=== PATIENT | female | born 1950 | race Caucasian/White ===

== ENCOUNTER → 2020-10-20 | Outpatient (CLI) | payer MEDICARE ==
[~2020-10-20] MED LIST: HYDCHL25 PO; METO100ER PO; SYNTHROID112 MCG PO
[2020-10-20 14:54] LABS: Calcium, Urine <5.0 mg/dL (< 17.5); Calcium, Urine Calculation Unable to Calculate mg/24hrs (42.0-353.0)
== END | disposition home or self-care (01) ==
LOC: LAB SHORT 09:00 → LAB 09:00
PROVIDERS: Internal Medicine
DX: E83.52 Hypercalcemia (principal)
CPT/HCPCS: 81050; 82340; 84156; 84300

== ENCOUNTER → 2021-03-31 | Outpatient (CLI) | payer MEDICARE ==
[2021-03-31 13:25] LABS: BASOPHILS ABSOLUTE AUTO 0.03 K/mm3 (0.00-0.23); BASOPHILS PERCENT AUTO 1 % (0-2); EOSINOPHILS ABSOLUTE AUTO 0.03 K/mm3 (0.00-0.68); EOSINOPHILS PERCENT AUTO 1 % (0-6); Hematocrit 44.1 % (33.0-51.0); Hemoglobin 14.2 g/dL (11.5-16.0); IMMATURE GRAN ABSOLUTE AUTO 0.02 K/mm3 (0.00-0.10); IMMATURE GRAN PERCENT AUTO 0 % (0-1); LYMPHOCYTES PERCENT AUTO 31 % (21-46); MONOCYTES ABSOLUTE AUTO 0.38 K/mm3 (0.16-1.47); MONOCYTES PERCENT AUTO 6 % (4-13); Mean Corpuscular HGB 29.3 pg (26.0-34.0); Mean Corpuscular HGB Conc 32.2 g/dL (31.5-36.5); Mean Corpuscular Volume 91 fL (80-100); Mean Platelet Volume 11.2 fL (9.1-12.4); NEUTROPHILS ABSOLUTE AUTO 4.08 K/mm3 (1.96-9.15); NEUTROPHILS PERCENT AUTO 62 % (41-73); Platelet Count 235 K/mm3 (150-400); RDW Coefficient Variation 13.8 % (11.7-14.2); RDW Standard Deviation 46.4 fL (35.1-46.3); Red Blood Cell Count 4.85 M/mm3 (3.80-5.20); White Blood Cell Count 6.54 K/mm3 (4.00-11.30)
[2021-03-31 14:27] LABS: Albumin, Blood 3.7 g/dL (3.4-5.0); Anion Gap 2 mmol/L (6-16); Blood Urea Nitrogen 21 mg/dL (8-24); Bun/Creatinine Ratio 18.3 (12.0-20.0); CO2, Blood 29 mmol/L (21-32); Calcium, Blood 11.4 mg/dL (8.5-10.1); Chloride, Blood 107 mmol/L (98-108); Creatinine, Blood 1.15 mg/dL (0.40-1.00); Glomerular Filtration Rate 50 (60-); Glucose, Blood 117 mg/dL (70-99); Phosphorus, Blood 2.6 mg/dL (2.5-4.9); Potassium, Blood 4.2 mmol/L (3.5-5.5); Sodium, Blood 138 mmol/L (136-145)
== END | disposition home or self-care (01) ==
LOC: LAB 12:25 → OLS 12:25 → RAD SHORT 12:25
PROVIDERS: Internal Medicine
DX: E83.52 Hypercalcemia (principal); N18.31 Chronic kidney disease, stage 3a
CPT/HCPCS: 36415; 80069; 82306; 82652; 83970; 85025

== ENCOUNTER → 2022-01-20 | Outpatient (CLI) | payer MEDICARE | END | disposition home or self-care (01) | LOC: LAB SHORT 12:00 | DX: E11.65 Type 2 diabetes mellitus with hyperglycemia (principal); E03.9 Hypothyroidism, unspecified; N28.9 Disorder of kidney and ureter, unspecified | CPT/HCPCS: 82043 ==

== ENCOUNTER → 2024-06-07 | Outpatient (CLI) | payer MEDICARE ==
[2024-06-07 15:56] LABS: Microalb/Creat Ratio UR, Rand 313.204 mg/g (0.000-30.000)
[2024-06-07 15:57] LABS: Creatinine, Urine Random 97.7 mg/dL (27.00-270.00)
== END ==
LOC: LAB 10:35 → LAB SHORT 10:35 → LAB FUT 06-06 13:30
PROVIDERS: Hospitalist
DX: N18.31 Chronic kidney disease, stage 3a (principal)
CPT/HCPCS: 82043; 82570

== ENCOUNTER → 2025-05-08 | Outpatient (CLI) | payer MEDICARE ==
[2025-05-08 14:55] LABS: Source, Urine Clean Catch
[2025-05-08 17:26] LABS: Bilirubin, Urine Neg (Neg); Color, Urine Yellow (P-Yellow); Glucose Qualitative, Urine Neg (Neg); Ketones, Urine Neg (Neg); Leukocyte Esterase, Urine 1+ (Neg); Protein, Urine 2+ (Neg); Specific Gravity, Urine 1.020 (1.003-1.022); Urobilinogen, Urine NORM (Normal)
== END | disposition home or self-care (01) ==
LOC: LAB 14:53 → LAB SHORT 14:53 → LAB FUT 12-27 15:00
PROVIDERS: Hospitalist
DX: N18.31 Chronic kidney disease, stage 3a (principal); E21.3 Hyperparathyroidism, unspecified; R31.29 Other microscopic hematuria
CPT/HCPCS: 81001; 87077; 87086; 87186

== ENCOUNTER 2025-09-19 02:53 | Inpatient (IN) | payer MEDICARE ==
[~2025-09-19] VITALS: Ht 162.6 cm; Wt 110.8 kg
[~2025-09-19 02:53] MED LIST changes: +AMLO10 PO; +ASPI81CH PO; +ATOR80 PO; +BENADRYL25 MG PO; +CEPH500 PO; +CLOP75 PO; +ERGO400 PO; +EUTHYROX125 MCG PO; +IBU800 M1 PO; +JARDIANCE10 MG PO; +LORA2 PO; +LOSA50 PO; +MAGNESIUM OXID400 M1 PO; +METFORMIN HCL500 M3 PO; +Norco 5-325 Ta1 EACH PO; +PAROEX473 ML MM; -SYNTHROID112 MCG PO; +VITAMIN B-122000 MC1 PO
[2025-09-19 03:44] LABS: BASOPHILS ABSOLUTE AUTO 0.09 K/mm3 (0.00-0.23); BASOPHILS PERCENT AUTO 1 % (0-2); EOSINOPHILS ABSOLUTE AUTO 0.21 K/mm3 (0.00-0.68); EOSINOPHILS PERCENT AUTO 2 % (0-6); Hematocrit 41.6 % (33.0-51.0); Hemoglobin 13.7 g/dL (11.5-16.0); IMMATURE GRAN ABSOLUTE AUTO 0.05 K/mm3 (0.00-0.10); IMMATURE GRAN PERCENT AUTO 1 % (0-1); LYMPHOCYTES ABSOLUTE AUTO 2.37 K/mm3 (0.84-5.20); LYMPHOCYTES PERCENT AUTO 22 % (21-46); MONOCYTES ABSOLUTE AUTO 0.61 K/mm3 (0.16-1.47); MONOCYTES PERCENT AUTO 6 % (4-13); Mean Corpuscular HGB Conc 32.9 g/dL (31.5-36.5); Mean Corpuscular Volume 89 fL (80-100); NEUTROPHILS ABSOLUTE AUTO 7.69 K/mm3 (1.96-9.15); NEUTROPHILS PERCENT AUTO 70 % (41-73); NRBC ABSOLUTE 0.00 K/mm3 (0.00-0.02); NRBC Auto 0.0 /100 WBC (0.0-0.2); RDW Coefficient Variation 13.6 % (11.7-14.2); RDW Standard Deviation 43.9 fL (35.1-46.3)
[2025-09-19 04:04] LABS: Platelet Count 34 K/mm3 (150-400)
[2025-09-19 04:17] LABS: Alanine Aminotransfer (ALT/SGP 25.0 U/L (12-78); Albumin, Blood 3.5 g/dL (3.4-5.0); Albumin/Globulin Ratio 1.0 (0.8-1.8); Anion Gap 12.0 mmol/L (3-11); Aspartate Aminotrans (AST/SGOT 24.0 U/L (12-37); Bilirubin, Total 0.9 mg/dL (0.1-1.0); Blood Urea Nitrogen 45.0 mg/dL (8-24); CO2, Blood 21.0 mmol/L (21-32); Calcium, Blood 11.3 mg/dL (8.5-10.1); Chloride, Blood 103.0 mmol/L (98-108); Creatinine, Blood 1.86 mg/dL (0.40-1.00); Globulin, Blood 3.6 g/dL (2.2-4.0); Glucose, Blood 243.0 mg/dL (70-99); Magnesium, Blood 1.9 mg/dL (1.6-2.4); Potassium, Blood 3.4 mmol/L (3.5-5.5); Sodium, Blood 133.0 mmol/L (136-145); Total Protein, Blood 7.1 g/dL (6.4-8.2)
[2025-09-19 04:24] LABS: Source, Urine Clean Catch
[2025-09-19 04:32] LABS: Bilirubin, Urine Neg (Neg); Color, Urine Yellow (P-Yellow); Glucose Qualitative, Urine 4+ (Neg); Ketones, Urine Neg (Neg); Leukocyte Esterase, Urine 1+ (Neg); Protein, Urine 2+ (Neg); Specific Gravity, Urine 1.020 (1.003-1.022); Urobilinogen, Urine NORM (Normal)
[2025-09-19 04:37] LABS: Prothrombin Time Results 11.6 Sec (9.7-11.5)
[2025-09-19 04:40] LABS: Red Blood Cells, Urine 0-2 /hpf (0-2)
[2025-09-19] MEDS ORDERED: CefTRIAXone Sodium 1,000 MG in NS 100 ML IV ONE (04:45)
[2025-09-19] MEDS ORDERED: Ondansetron HCl 2 MG / ML 2ML Vial IV PRN (05:40)
[2025-09-19] MEDS ORDERED: FLU VACC TS2025(65UP)/MF59C/PF 45 MCG/0.5 ML SYRINGE IM SCH (06:00)
[2025-09-19 06:07] LABS: Thyroid Stimulating Hormone 6.12 uIU/mL (0.360-4.800)
[2025-09-19] MEDS ORDERED: Enoxaparin 40 MG/0.4 ML SYR SC SCH (09:00)
[2025-09-19] MEDS ORDERED: Lactobacil 2-S.Thermo-Bifido 1 1 Cap PO SCH (09:00)
[2025-09-19 12:31] VITALS: BP 126/80
[2025-09-19 16:47] VITALS: BP 133/79
[2025-09-19 19:55] VITALS: BP 128/79
[2025-09-20 00:01] VITALS: BP 129/89
[2025-09-20 04:12] VITALS: BP 125/76
[2025-09-20 05:17] LABS: Hematocrit 42.1 % (33.0-51.0); Hemoglobin 13.8 g/dL (11.5-16.0); Mean Corpuscular HGB Conc 32.8 g/dL (31.5-36.5); Mean Corpuscular Volume 88 fL (80-100); NRBC ABSOLUTE 0.00 K/mm3 (0.00-0.02); NRBC Auto 0.0 /100 WBC (0.0-0.2); RDW Coefficient Variation 13.6 % (11.7-14.2); RDW Standard Deviation 44.2 fL (35.1-46.3)
[2025-09-20 05:29] LABS: Platelet Count 20 K/mm3 (150-400)
[2025-09-20 05:42] LABS: Albumin, Blood 3.4 g/dL (3.4-5.0); Anion Gap 8 mmol/L (3-11); Blood Urea Nitrogen 31 mg/dL (8-24); CO2, Blood 26 mmol/L (21-32); Calcium, Blood 11.3 mg/dL (8.5-10.1); Chloride, Blood 106 mmol/L (98-108); Creatinine, Blood 1.47 mg/dL (0.40-1.00); Glucose, Blood 130 mg/dL (70-99); Magnesium, Blood 2.2 mg/dL (1.6-2.4); Phosphorus, Blood 2.7 mg/dL (2.5-4.9); Potassium, Blood 3.9 mmol/L (3.5-5.5); Sodium, Blood 136 mmol/L (136-145)
--- NOTE | 2025-09-20 06:04 | NUR ---
SHIFT SUMMARY PT WITH UNEVENTFUL SHIFT. PUREWICK DRAINING YELLOW URINE. PT ABLE TO REPOSITION SELF IN BED, HAS NOT GOTTEN OUT OF BED TONIGHT. TELE RUNNING SR. PT SLEPT INTERMITTENTLY DURING THE SHIFT. PLUG AND MOLD FINISHER PROVIDER NOTIFIED OF CRITICAL PLTS= 20, DOWN FROM 34 AT ADMISSION- NO NEW ORDERS.
[2025-09-20 07:19] VITALS: BP 121/81
[2025-09-20] MEDS ORDERED: CefTRIAXone Sodium 1,000 MG in NS 100 ML IV SCH (09:00)
--- NOTE | 2025-09-20 09:00 | NUR ---
"Spiritual Care Visit | Pt. Request Pt. is awake in bed when she welcomes my visit. Pt. is pleasant. Facilitated a life review and listened with empathy and interest. Pt. verbalizes concerns that she will be able to care for herself at discharge. Seek to normalize the Pt. experience. Pt. verbalizes that her daughter lives in [place] but it is difficult for the daughter to be present with the Pt. at home. Considered matters of kenya and belief. Pt. welcomed prayer. Took the Pts hand and prayed with her. Pt. verbalized gratitude for the spiritual care visit."
[2025-09-20 11:45] VITALS: BP 141/89
[2025-09-20 15:35] VITALS: BP 144/90
--- NOTE | 2025-09-20 16:43 | NUR ---
SHIFT SUMMARY PT AOX4, COOPERATIVE, ABLE TO MAKE NEEDS KNOWN. PT IS BEDREST CURRENLTY UNTIL PT CAN ASSESS. ON ROOM AIR, TOELRATING MEDICATION. PURE WICK IN PLACE FOR CONTINENCE ISSUES. DID DC LOVENOX, WILL HAND OFF IN REPORT. NO OTHER COMPLAINTS THIS SHIFT. BED IN LOWEST POSITION, CALL LIGHT WITHIN REACH.
[2025-09-20 19:14] VITALS: BP 135/86
[2025-09-21 00:11] VITALS: BP 134/95
[2025-09-21 04:03] VITALS: BP 133/86
[2025-09-21 05:53] LABS: Hematocrit 41.5 % (33.0-51.0); Hemoglobin 13.8 g/dL (11.5-16.0); Mean Corpuscular HGB Conc 33.3 g/dL (31.5-36.5); Mean Corpuscular Volume 87 fL (80-100); NRBC ABSOLUTE 0.00 K/mm3 (0.00-0.02); NRBC Auto 0.0 /100 WBC (0.0-0.2); RDW Coefficient Variation 13.6 % (11.7-14.2); RDW Standard Deviation 43.5 fL (35.1-46.3)
[2025-09-21 06:04] LABS: Platelet Count 17 K/mm3 (150-400)
[2025-09-21 06:20] LABS: Anion Gap 8.0 mmol/L (3-11); Blood Urea Nitrogen 26.0 mg/dL (8-24); CO2, Blood 27.0 mmol/L (21-32); Calcium, Blood 11.3 mg/dL (8.5-10.1); Chloride, Blood 105.0 mmol/L (98-108); Creatinine, Blood 1.52 mg/dL (0.40-1.00); Glucose, Blood 125.0 mg/dL (70-99); Potassium, Blood 4.0 mmol/L (3.5-5.5); Sodium, Blood 136.0 mmol/L (136-145)
--- NOTE | 2025-09-21 06:42 | NUR ---
SHIFT SUMMARY PT STAYED IN BED DURING THE NIGHT. ABLE TO REPOSITION SELF WITH HELP NEEDED. PUREWICK DRAINING YELLOW URINE. PLATELETS CONTINUE TO TREND DOWN. PLATELETS AT 17 THIS AM. DISCUSSED RESULTS WITH TRUCK HOP, HEMATOLOGY IS FOLLOWING. PT SLEPT INTERMITTENTLY DURING THE NIGHT.
[2025-09-21 08:16] VITALS: BP 150/92
[2025-09-21] MEDS ORDERED: NS 250 ML IV PRN (09:55)
[2025-09-21 11:58] VITALS: BP 152/95
--- NOTE | 2025-09-21 14:17 | NUR ---
NOTE PT HAD VENOUS DUPLEX AND CT PE STUDY COMPLETE TODAY. THIS RN SAW RESULTS, NOTIFIED DR. GAMINO OF BOTH RESULTS. NO NEW INTERVENTIONS AT THIS TIME. DR. COTA ORDERED ELIQUIS THIS AM, WHICH PT GOT DOSE OF, DR. GAMINO REPORTED "PT WILL REMAIN ON ELIQUIS.
[2025-09-21 15:20] VITALS: BP 138/91
--- NOTE | 2025-09-21 18:51 | NUR ---
SHIFT SUMMARY PT A&OX4. PT ADMITTED DUE TO ORTHOSTATIC HYPOTENSION. PT VSS. PT REPORTS NO PAIN/NO DIZZY/NO SOB/NO CHEST PAIN. PT ABLE TO TURN WITH ONE ASSIST. PT TURNED Q2 HOURS. SYNCOPAL EVENT ON 09/19. PT WITH SLOW SPEECH, PT REPORTS NOT SURE IF SHE CAN WALK DUE TO TWISTED ANKLE WHEN SHE FELL. PHYSICAL THERAPY ORDERED. PT HAS PERWICK IN PLACE. PT HAS CONT PULSE OX ON, PT ON ROOM AIR. SPO2 IS 93%. PT VSS. PT ON TELE, NO TELE REPORTS NOTED. PT REPORTS NO BM SINCE TUESDAY, BOWEL MEDS GIVEN. ACHS CHECKS COMPLETED AND D/C DUE TO BEING ON JARDIANCE AND CBG CHECKS BEEN STABLE WHILE PT HAS BEEN ADMITTED. CIPRO AND COZAAR STARTED. ADDITIONAL IV STARTED AT [facility]. PT COMPLETED PE STUDY AND LOWER VENOUS DUPLEX, RESULTS REPORTED TO DR. GAMINO (SEE PREVIOUS NOTE) PT IN BED, BED IN LOWEST POSITION, LOCKED, CALL LIGHT IN REACH
[2025-09-21 19:22] VITALS: BP 166/81
[2025-09-22 00:12] VITALS: BP 140/82
--- NOTE | 2025-09-22 01:05 | NUR ---
PT C/O GENERALIZED ACHES INCLUDING HEAD AND STOMACH- ALSO C/O NAUSEA. PT WITH INCREASED OXYGEN REQUIREMENTS AT START OF SHIFT FOR DESATTING AND SOB WITH ACTIVITY. IMAGING TODAY SHOWED PE'S AND DVT. PT STATED OXYGEN HELPED WITH SOB WHEN FIRST APPLIED, BUT STILL HAS SOB WITH ANY ACITVITY- CONTINUOUS PULSE OX SHOWING SATS 90-94% ON 2L NC. DR. GONZALEZ NOTIFIED OF ABOVE. AWAITING ORDERS FOR ANTINAUSEA MEDICATION, WILL CONTINUE TO MONITOR RESPIRATORY STATUS.
[2025-09-22] MEDS ORDERED: Ondansetron HCl 2 MG / ML 2ML Vial IV PRN (01:10)
[2025-09-22 04:49] VITALS: BP 129/80
[2025-09-22 05:40] LABS: Hematocrit 41.7 % (33.0-51.0); Hemoglobin 13.8 g/dL (11.5-16.0); Mean Corpuscular HGB Conc 33.1 g/dL (31.5-36.5); Mean Corpuscular Volume 89 fL (80-100); NRBC ABSOLUTE 0.00 K/mm3 (0.00-0.02); NRBC Auto 0.0 /100 WBC (0.0-0.2); RDW Coefficient Variation 13.8 % (11.7-14.2); RDW Standard Deviation 44.4 fL (35.1-46.3)
[2025-09-22 05:50] LABS: Platelet Count 20 K/mm3 (150-400)
[2025-09-22 06:07] LABS: Anion Gap 6.0 mmol/L (3-11); Blood Urea Nitrogen 23.0 mg/dL (8-24); CO2, Blood 28.0 mmol/L (21-32); Calcium, Blood 11.3 mg/dL (8.5-10.1); Chloride, Blood 104.0 mmol/L (98-108); Creatinine, Blood 1.59 mg/dL (0.40-1.00); Glucose, Blood 126.0 mg/dL (70-99); Potassium, Blood 4.3 mmol/L (3.5-5.5); Sodium, Blood 134.0 mmol/L (136-145)
--- NOTE | 2025-09-22 06:29 | NUR ---
SHIFT SUMMARY PT REQUIRED OXYGEN 2L PER NC DURING THE NIGHT. C/O SOB WITH ANY ACTIVITY. PT WITH GENERAL BODY ACHES AND NAUEA DURING THE NIGHT, LOOM BLOWER PROVIDER NOTIFIED- SEE PREVIOUS NOTE. PT STATES HER NAUSEA AND ACHES HAVE IMPROVED THIS AM. STILL SOB WHEN HEAD LOWERED AND REPOSITIONED FOR CARE. PUREWICK DRAINING YELLOW URINE. PT SLEPT INTERMITTENTLY DURING THE NIGHT.
[2025-09-22 07:31] VITALS: BP 129/69
[2025-09-22] MEDS ORDERED: Albuterol 2.5 MG/3 ML VIAL INH PRN (10:00)
[2025-09-22] MEDS ORDERED: Albuterol 2.5 MG/3 ML VIAL INH ONE (10:05)
[2025-09-22] MEDS ORDERED: Ipratropium/Albuterol SulF 2.5-0.5MG/3 ML Amp INH PRN (10:25)
[2025-09-22 11:15] VITALS: BP 119/91
[2025-09-22 16:05] VITALS: BP 113/69
--- NOTE | 2025-09-22 19:23 | NUR ---
SHIFT SUMMARY PT A&OX4. PT ADMITTED DUE TO ORTHOSTATIC HYPOTENSION. PT REPORTS NO CHEST PAIN. PT ABLE TO TURN WITH ONE ASSIST. PT REPORTS SOB WITH MOVEMENT. PT TURNED Q2 HOURS. SYNCOPAL EVENT ON 09/19. PT WITH SLOW SPEECH, PT WORKED WITH PHYSICAL THERAPY. PHYSICAL THERAPY REPORTED PT ABLE TO STAND, PT REPORTED DIDN T FEEL LIKE SHE COULD WALK ON L ANKLE. NOT SURE IF XRAY HAS BEEN COMPLETED ON L ANKLE. THIS RN REPORTED TO DR. GAMINO, PHYSICAL THERAPY REPORT. DR. GAMINO ORDERED XRAY ON L ANKLE. ANKLE XRAY COMPLETED OF L ANKLE. RESULTS OF XRAY REPORTED TO DR. GAMINO. PT CONT/INC OF URINE. PT HAS PERWICK IN PLACE. PT HAS CONT PULSE OX ON, PT ON 2L OF O2 VIA N;/C SATS SHOW 95%. DR. GAMINO ROUNDED ON PT THIS AM, THIS RN NOTICED SPO2 ON ROOM AIR WAS 85%, THIS RN REPORTED TO DR. GAMINO PT REMAINS ON 2L. OF O2. PT VSS. PT ON TELE, NO TELE REPORTS NOTED. BOWEL MEDS GIVEN. PT REPORTS NO NAUSEA ON THIS SHIFT. PT IN BED, BED IN LOWEST POSITION, LOCKED, CALL LIGHT IN REACH. INCENTIVE SPIROMETER ORDERED, PT DEMONSTRATED USE, PT EDUCATED TO USE ORDERED. RESPIRATORY TREATMENTS ORDERED.
[2025-09-22 20:38] VITALS: BP 124/82
[2025-09-23] VITALS (7 sets, daily range): BP systolic 107–132; BP diastolic 64–80
[2025-09-23 05:53] LABS: Hematocrit 40.4 % (33.0-51.0); Hemoglobin 13.0 g/dL (11.5-16.0); Mean Corpuscular HGB Conc 32.2 g/dL (31.5-36.5); Mean Corpuscular Volume 91 fL (80-100); NRBC ABSOLUTE 0.00 K/mm3 (0.00-0.02); NRBC Auto 0.0 /100 WBC (0.0-0.2); RDW Coefficient Variation 14.0 % (11.7-14.2); RDW Standard Deviation 46.5 fL (35.1-46.3)
[2025-09-23 06:14] LABS: Platelet Count 21 K/mm3 (150-400)
--- NOTE | 2025-09-23 06:43 | NUR ---
SHIFT SUMMARY PT MAINTAINED ON 2L NC WITH SATS WNL. STILL C/O SOB WITH MOVEMENT. TURNED AND REPOSITIONED. PUREWICK DRAINING YELLOW URINE. PT SLEPT LONG INTERVALS DURING THE NIGHT. PLATELETS UP TO 21 THIS AM.
--- NOTE | 2025-09-23 17:00 | NUR ---
SHIFT SUMMARY PATIENT IS A&OX4, ON 1 LITER OF O2 BY NASAL CANNULA. TELEMETRY HAS REMAINED IN SINUS RHYTHM. SHE WAS EVALUATED FOR HOME O2 TODAY AND DOES QUALIFY DUE TO DESATURATION WITH LAYING DOWN IN THE BED. PATIENT HAS BEEN UNABLE TO AMBULATE WITH THE LEFT ANKLE, PT HAS STAIRS HER AND HER DAUGHTER ARE WORRIED ABOUT HER ABILITY TO GET IN AND OUT OF HER HOME. DR. GAMINO AGREED PATIENT SHOULD WORK WITH PT ON USING STAIRS AND NOT BE DISCHARGED UNTIL SHE IS SAFE TO GO. PATIENT HAS BEEN PLEASANT AND COOPERATIVE WITH CARE. SHE HAS A PURWICK WHICH IS DRAINING YELLOW URINE. PATIENT HAS HAD NO ACUTE EVENTS THIS SHIFT. SHE HAS BEEN PLEASANT AND COOPERATIVE WITH CARE. BED IS LOW AND LOCKED, CALL LIGHT IN REACH.
[2025-09-24 03:41] VITALS: BP 120/68
--- NOTE | 2025-09-24 04:01 | NUR ---
END OF SHIFT SUMMARY: AxOX4. FULL CODE. ADMITTED FOR ORTHOSTATIC HYPOTENSION. PATIENT HAS A DVT - LEFT POPLITEAL AND PE AND IS ON ELIQUIS. PATIENT IS ON A CONSISTENT CARB DIET. PATIENT IS HAVING PAIN IN HER LEFT ANKLE WHICH SHOWED NO FX. PATIENT IS ON TELE NSR @ 70 BPM AND 1L NASAL CANNULA. PATIENT IS ABLE TO MAKE NEEDS KNOWN. PATIENT IS ON BEDREST WITH PT TO EVALUATE TODAY. PATIENT ALSO HAS A HEMATOLOGY CONSULT DUE TO THROMBOCYTOPENIA. PATIENT TAKES MEDS WHOLE WITH FLUIDS. BED IN LOWEST POSITION. CALL LIGHT WITHIN REACH AND PATIENT HAS BEEN EDUCATED ON HOW TO USE. WILL REPORT TO ONCOMING NURSE.
[2025-09-24 05:46] LABS: Hematocrit 39.3 % (33.0-51.0); Hemoglobin 12.8 g/dL (11.5-16.0); Mean Corpuscular HGB Conc 32.6 g/dL (31.5-36.5); Mean Corpuscular Volume 90 fL (80-100); NRBC ABSOLUTE 0.00 K/mm3 (0.00-0.02); NRBC Auto 0.0 /100 WBC (0.0-0.2); RDW Coefficient Variation 14.0 % (11.7-14.2); RDW Standard Deviation 45.3 fL (35.1-46.3)
[2025-09-24 05:50] LABS: Platelet Count 41 K/mm3 (150-400)
[2025-09-24 07:16] VITALS: BP 134/114
--- NOTE | 2025-09-24 08:09 | NUR ---
Pt laying in bed awake a/ox4, pleasant and cooperative with care, follows commands well, denies pain at this time, lungs are clear in upper [place], a bit dim in bases, resp even and unlabored at rest, occ cough noted that is harsh, pt reports nonproductive, hrr, tele in place running sr in the 70's per monitor, see strip, !-2+ edema noted to b/l le, ppp+1, cap refill<3 sec, vs stable, afebrile, piv to lfa and lh sites are clear and patent, btx4, abd round soft nontender, voids via purwick, clear yellow urine, skin c/w/d, maew, darshan, call light in reach.
[2025-09-24 11:08] VITALS: BP 133/83
[2025-09-24 11:18] LABS: HEP-IND THROMBOCYTOPEN PF4,IGG 0.087 OD (<=0.399)
[2025-09-24 15:49] VITALS: BP 140/79
--- NOTE | 2025-09-24 17:38 | NUR ---
SHIFT SUMMARY PATIENT IS A&OX4, PLEASANT AND COOPERATIVE WITH CARE. SHE IS ABLE TO MAKE HER NEEDS KNOWN BUT AVOIDS CALLING DUE TO FEAR OF "BOTHERING" NURSING STAFF, SHE HAS BEEN REASSURED CONSTANTLY AND IS BEING ROUNDED ON MORE FREQUENTLY. SHE DID WORK WITH PT TODAY AND WAS ABLE TO ASCEND AND DESCEND STAIRS AND AMBULATE THROUGH [facility] WITH F[facility]. DR. GAMINO DID ORDER A CT OF THE LEFT ANKLE AND SHE DOES HAVE A FRACTURE. SHE IS ON 1 LITER O2 BY NASAL CANNULA AND HAS TELE RUNNING NSR WITH PAC. SHE HAS THE PURWICK WHICH IS DRAINING CLEAR YELLOW URINE. THE BED IS LOW AND LOCKED, CALL LIGHT IS WITHIN REACH.
[2025-09-24 20:03] VITALS: BP 135/67
[2025-09-25] VITALS: BP 115/70
[2025-09-25 04:59] VITALS: BP 139/72
[2025-09-25 05:35] LABS: Hematocrit 40.1 % (33.0-51.0); Hemoglobin 13.0 g/dL (11.5-16.0); Mean Corpuscular HGB Conc 32.4 g/dL (31.5-36.5); Mean Corpuscular Volume 91 fL (80-100); NRBC ABSOLUTE 0.00 K/mm3 (0.00-0.02); NRBC Auto 0.0 /100 WBC (0.0-0.2); Platelet Count 62 K/mm3 (150-400); RDW Coefficient Variation 14.0 % (11.7-14.2); RDW Standard Deviation 46.2 fL (35.1-46.3)
--- NOTE | 2025-09-25 06:38 | NUR ---
SHIFT SUMMARY PT A&OX4 AND ASNWERS QUESTIONS APPROPRIATELY. PT VSS, NO COMPLAINTS OF CP/PRESSURE OR SOB. PT CT SHOWS L ANKLE FRACTURE. PT WHEN ASSESSED DID NOT HAVE SIGNIFICANT PAIN AND DECLINED THE USE OF PAIN MEDICATION AT THAT TIME. SCHEDULED MEDICATIONS GIVEN. PT INCONTINENT, ATTENDS CHANGED PRN. NO ACUTE EVENTS AT THIS TIME. PT SPENT MOST OF SHIFT IN BED WITH EYES CLOSED AND RESPIRATIONS EVEN AND UNLABORED. FALL PRECAUTIONS IN PLACE AND CALL LIGHT IN REACH.
[2025-09-25 07:36] VITALS: BP 137/71
[2025-09-25] MEDS ORDERED: Acetaminophen650 M1 PO (11:25)
[2025-09-25] MEDS ORDERED: ELIQUIS5 M2 PO (11:27)
[2025-09-25] MEDS ORDERED: ASPI81CH PO (11:27)
[2025-09-25] MEDS ORDERED: OMEP20ER PO (11:28)
[2025-09-25] MEDS ORDERED: DOCU100 PO (11:28)
[2025-09-25] MEDS ORDERED: ERGO400 PO (11:28)
--- NOTE | 2025-09-25 16:22 | NUR ---
DISCHARGE SUMMARY: A&Ox4. PLEASANT AND COOPERATIVE WITH CARE. CALLS APPROPRIATELY AND IS ABLE TO ADVOCATE NEEDS EFFECTIVELY. SBA c FWW UNTIL CAM BOOT PLACED; THEN NEEDED 1PA c GB UNTIL SHE WAS ABLE TO ACCLIMATE TO CAM BOOT. CONTINENT OF BOWEL c URGE URINARY INCONTINENCE. MEDS WHOLE c FLUIDS. TELE NSR. NO C/O PAIN OR DISCOMFORT. PATIENT PROVIDED WITH COPY OF DISCHARGE PLAN AND MEDICATION LIST. MED REC FAXED TO [facility]. INSTRUCTED TO FOLLOW-UP WITH PCP AND ORTHO INDICATED. ALL QUESTIONS ANSWERED TO DISCHARGING NURSE'S ABILITY AND PATIENT VOICED UNDERSTANDING OF DISCHARGE PLAN. IV REMOVED AND PRESSURE DRESSING PLACED. LEFT FLOOR WITH ALL BELONGINGS AND DISCHARGE PACKET, ESCORTED BY [facility]. TRANSPORTATION PROVIDED BY [facility], VIA POV.
== END 2025-09-25 16:21 | disposition home health service (06) | DRG 813 ==
LOC: ER 02:53 → ERHOLD 02:54 → ER 02:54 → ERHOLD 02:54 → ER 12:10 → MEDS 12:10
PROVIDERS: Internal Medicine; Internal Medicine Hematology & Oncology; Student in an Organized Health Care Education/Training Program; ADMIT Student in an Organized Health Care Education/Training Program
DX: D69.59 Other secondary thrombocytopenia (principal); I26.92 Saddle embolus of pulmonary artery without acute cor pulmonale; J96.01 Acute respiratory failure with hypoxia; N30.00 Acute cystitis without hematuria; I13.0 Hypertensive heart and chronic kidney disease with heart failure and stage 1 through stage 4 chronic kidney disease, or unspecified chronic kidney disease; I50.32 Chronic diastolic (congestive) heart failure; N17.9 Acute kidney failure, unspecified; I82.431 Acute embolism and thrombosis of right popliteal vein; Z68.41 Body mass index [BMI] 40.0-44.9, adult; E03.9 Hypothyroidism, unspecified; F17.210 Nicotine dependence, cigarettes, uncomplicated; E11.22 Type 2 diabetes mellitus with diabetic chronic kidney disease; E78.5 Hyperlipidemia, unspecified; N18.30 Chronic kidney disease, stage 3 unspecified; E66.9 Obesity, unspecified; F12.10 Cannabis abuse, uncomplicated; Z99.81 Dependence on supplemental oxygen; Z60.2 Problems related to living alone; I95.1 Orthostatic hypotension; F10.90 Alcohol use, unspecified, uncomplicated; E83.52 Hypercalcemia; E87.6 Hypokalemia; M25.572 Pain in left ankle and joints of left foot; T45.515A Adverse effect of anticoagulants, initial encounter; E86.0 Dehydration; B96.20 Unspecified Escherichia coli [E. coli] as the cause of diseases classified elsewhere; Z79.899 Other long term (current) drug therapy; Z79.890 Hormone replacement therapy; Z86.73 Personal history of transient ischemic attack (TIA), and cerebral infarction without residual deficits; Z86.79 Personal history of other diseases of the circulatory system; Z86.018 Personal history of other benign neoplasm; Z79.84 Long term (current) use of oral hypoglycemic drugs; Z88.5 Allergy status to narcotic agent; Z79.82 Long term (current) use of aspirin; Z79.2 Long term (current) use of antibiotics; W19.XXXA Unspecified fall, initial encounter; Y92.009 Unspecified place in unspecified non-institutional (private) residence as the place of occurrence of the external cause
CPT/HCPCS: 36415; 71260; 73600; 73610; 73700; 80048; 80053; 80069; 81001; 82330; 82947; 83735; 83880; 83970; 84439; 84443; 85025; 85027; 85060; 85610; 85730; 86022; 87077; 87086; 87186; 93005; 93010; 93970; 94640; 94664; 94761; 94762; 96361; 96365; 96372; 96372-59; 96376; 97110; 97116; 97161; 97530; 99285-25; A6590; A9270; G0378; J0696; J1650; J2405; J3480; J7050; J7120; P9612; Q9967